=== PATIENT | female | born 1980 | race Caucasian/White ===

== ENCOUNTER 2018-09-23 16:22 | Emergency (ER) | payer BC, OTHER ==
[2018-09-23 16:32] VITALS: BP 128/88; PULSE 91; RESP 18; TEMP 98.1
[2018-09-23] MEDS ORDERED: METOCLOPRAMIDE 5 MG/ML 2 ML VIAL IVP STA (16:54)
[2018-09-23] MEDS ORDERED: ORPHENADRINE 30 MG/ML 2 ML VIAL IVP STA (16:54)
[2018-09-23] MEDS ORDERED: diphenhydrAMINE 50 MG/ML 1 ML VIAL IVP STA (16:54)
[2018-09-23] MEDS ORDERED: KETOROLAC 30 MG/ML 1 ML VIAL IVP STA (16:54)
[2018-09-23] MEDS ORDERED: SODIUM CHLORIDE 0.9% 1,000 ML IV ONE (16:55)
--- NOTE | 2018-09-23 17:46 | ED ---
Headache HPI - General Chief Complaint: Headache Stated Complaint: Headache with neuro deficits Time Seen by Provider: 09/23/18 16:34 Source: patient, RN notes reviewed Mode of arrival: ambulatory Limitations: no limitations - History of Present Illness Initial Comments: 38-year-old female presents emergency Department with chief complaint of headache. Patient has a long history migraine headaches usually alleviated with Motrin. Patient states occasionally she takes her mother's [place] but states that did not help. She also tried some CBD oil. Patient states that she did at one point have injections in her posterior skull region for migraine headaches. Patient denies any upper chest weakness, lower external weakness she does admit to some photophobia but denies any current nausea vomiting, neck pain, neck stiffness. She states she just feels sick. Denies any blurred vision, double vision. - Related Data Allergies Allergy/AdvReac Type Severity Reaction Status Date / Time No Known Allergies Allergy Verified 09/23/18 16:31 Review of Systems ROS Statement: Those systems with pertinent positive or pertinent negative responses have been documented in the HPI. ROS Other: All systems not noted in ROS Statement are negative. Past Medical History Past Medical History: Hypertension Additional Past Medical History / Comment(s): headaches Past Surgical History: No Surgical Hx Reported Past Psychological History: Bipolar, Depression Smoking Status: Never smoker Past Alcohol Use History: None Reported Past Drug Use History: None Reported General Exam Limitations: no limitations General appearance: alert, in no apparent distress Head exam: Present: atraumatic, normocephalic, normal inspection Eye exam: Present: normal appearance, PERRL, EOMI. Absent: scleral icterus, conjunctival injection, periorbital swelling ENT exam: Present: normal exam, normal oropharynx, mucous membranes moist, TM's normal bilaterally Neck exam: Present: normal inspection, full ROM. Absent: tenderness, meningismus, lymphadenopathy Respiratory exam: Present: normal lung sounds bilaterally. Absent: respiratory distress, wheezes, rales, rhonchi, stridor Cardiovascular Exam: Present: regular rate, normal rhythm, normal heart sounds. Absent: systolic murmur, diastolic murmur, rubs, gallop, clicks GI/Abdominal exam: Present: soft, normal bowel sounds. Absent: distended, tenderness, guarding, rebound, rigid Extremities exam: Present: normal inspection, full ROM, normal capillary refill. Absent: tenderness, pedal edema, joint swelling, calf tenderness Neurological exam: Present: alert, oriented X3, CN II-XII intact, normal gait, reflexes normal, other (Finger to nose intact bilaterally without overshooting). Absent: motor sensory deficit Skin exam: Present: warm, dry, intact, normal color. Absent: rash Course Vital Signs 09/23/18 16:27 Temperature 98.1 F Pulse Rate 91 Respiratory 18 Rate Blood Pressure 128/88 O2 Sat by Pulse 99 Oximetry - Reevaluation(s) Reevaluation #1: 09/23/18 18:02 Patient reevaluated states that her headache is greatly improved patient states she was comfortable with discharge at this time no neurological deficits. 09/23/18 18:02 Medical Decision Making - Medical Decision Making 38-year-old female presented for headache. Patient had typical migraine headache with no neurological deficits. Patient given Benadryl, Reglan, Toradol and IV fluids which improved her symptoms. Patient we discharged. Disposition Clinical Impression: Migraine Disposition: HOME SELF-CARE Condition: Stable Instructions (If sedation given, give patient instructions): Acute Headache (ED) Additional Instructions: Please return to the Emergency Department if symptoms worsen or any other concerns. Is patient prescribed a controlled substance at d/c from ED?: No Referrals: Jonnie Campbell MD [Primary Care Provider] - 1-2 days Time of Disposition: 18:03
== END 2018-09-23 18:27 | disposition home or self-care (01) ==
LOC: EC 16:22
DX: G43.909 Migraine, unspecified, not intractable, without status migrainosus (principal)
CPT/HCPCS: 99283; 96374; 96375 ×3; 96361; J1200; J2360; J2765; J1885

== ENCOUNTER → 2021-06-09 | Outpatient (CLI) | payer OTHER ==
[2021-06-09 14:19] LABS: Basophils # (A) 0.03 X 10*3/uL (0.00-0.10); Basophils % (A) 0.3 %; Eosinophils # (A) 0.16 X 10*3/uL (0.04-0.35); Eosinophils % (A) 1.8 %; HCT 43.8 % (37.2-46.3); HGB 14.4 g/dL (12.0-15.0); Immature Grans, Automated 0.3 %; Lymphocytes # (A) 2.41 X 10*3/uL (0.90-5.00); Lymphocytes % (A) 26.8 %; MCH 30.3 pg (27.0-32.0); MCHC 32.9 g/dL (32.0-37.0); Mean Platelet Volume 10.4 fL (9.5-12.2); Monocytes # (A) 0.77 X 10*3/uL (0.20-1.00); Monocytes % (A) 8.6 %; NRBC Per 100 WBC 0 /100 WBCS (0.0-0.0); Neutrophils # (A) 5.59 X 10*3/uL (1.80-7.70); Neutrophils % (A) 62.2 %; Platelet Count 358 X 10*3/uL (140-440); RBC 4.76 X 10*6/uL (4.10-5.20); RDW 13.4 % (11.5-14.5); WBC 8.99 X 10*3/uL (4.50-10.00)
== END | disposition home or self-care (01) ==
LOC: LABPAT 07:27
PROVIDERS: ATTEND Obstetrics & Gynecology
DX: Z01.818 Encounter for other preprocedural examination (principal); I10 Essential (primary) hypertension; T83.32XS Displacement of intrauterine contraceptive device, sequela; Y76.2 Prosthetic and other implants, materials and accessory obstetric and gynecological devices associated with adverse incidents
CPT/HCPCS: 85025; 93005

== ENCOUNTER 2021-06-12 07:49 | Day surgery (SDC) | payer OTHER ==
[2021-06-08 16:35] VITALS: BMI 30.2
[~2021-06-12 07:49] MED LIST: DEXAMETHASONE SOD PHOSPHATE 4 MG/ML 1 ML VIAL IV ONE; HYDROmorphone 0.5 MG/0.5 ML SYRINGE IVP PRN; LACTATED RINGERS 1,000 ML IV SCH; MIDAZOLAM 2 MG/2 ML VIAL IV PRN; ONDANSETRON 4 MG/2 ML VIAL IVP ONE; Pre Op ABX Message 1 EACH MISC MISCELLANE ONE; SCOPOLAMINE 1.5MG/72HR PATCH TRANSDERM ONE
[2021-06-12] MEDS ORDERED: PROPOFOL 10 MG/ML 20 ML VIAL IV ONE (09:30)
[2021-06-12] MEDS ORDERED: LIDOCAINE 1% INJ 10MG/ML (20 ML MDV) ONE (09:30)
[2021-06-12] MEDS ORDERED: MIDAZOLAM 2 MG/2 ML VIAL ONE (09:30)
[2021-06-12] MEDS ORDERED: fentaNYL (PF) 50 MCG/ML 2 ML AMP ONE (09:30)
[2021-06-12] MEDS ORDERED: SIMETHICONE 80 MG CHEWABLE PO PRN (09:59)
[2021-06-12] MEDS ORDERED: ONDANSETRON 4 MG/2 ML VIAL IVP PRN (09:59)
[2021-06-12] MEDS ORDERED: METOCLOPRAMIDE 5 MG/ML 2 ML VIAL IVP PRN (09:59)
[2021-06-12] MEDS ORDERED: KETOROLAC 15 MG/ML 1 ML VIAL IVP PRN (09:59)
[2021-06-12] MEDS ORDERED: diphenhydrAMINE 50 MG/ML 1 ML VIAL IVP PRN (09:59)
[2021-06-12] MEDS ORDERED: Acetaminophen-Codeine 300-30mg TAB PO PRN ×2 (09:59)
[2021-06-12] MEDS ORDERED: LACTATED RINGERS 1,000 ML IV SCH (10:00)
--- NOTE | 2021-06-12 10:08 | P.OP ---
Date of Procedure: 06/12/21 Preoperative Diagnosis: #1. Retained intrauterine device Postoperative Diagnosis: Same plus #2. Possible submucous fibroid Procedure(s) Performed: #1. Diagnostic hysteroscopy #2. Removal of Mirena intrauterine device #3. Insertion of Mirena intrauterine device Anesthesia: other (Gen. by face mask) Surgeon: Roberto Ramirez Estimated Blood Loss (ml): 5 IV fluids (ml): 400 Urine output (ml): 5 Pathology: none sent Condition: stable Disposition: PACU Operative Findings: Gravid pelvic examination demonstrated a 5-6 week midplane normal shaped uterus with normal adnexa bilaterally. Intraoperatively, the uterus sounded to urban roximately 9 cm. Using the hysteroscope, the IUD strings were seen to be doubled up along the body of the IUD. IUD was ultimately removed intact with perhaps only 3 cm of strings from the hub. There did appear to be a roughly 2 cm right low anterior submucous fibroid changing the architecture of the intrauterine cavity though this could not be palpated with a curette. The new Mirena was placed to the fundus of the uterus without difficulty and the strings trimmed to a length of approximately 4 cm from the cervix. Description of Procedure: The patient was prepped and draped in usual fashion after general anesthesia was administered by the anesthesiologist. Weighted speculum was placed in the bladder draining approximate 5 mL of clear silas urine. Anterior lip of the cervix was grasped with a single-tooth tenaculum and uterus sounded to 9 cm as noted above. Serial dilation was carried out to admit the scope. Initial attempts to remove the IUD with a Bosman clamp were unsuccessful. The scope was then placed and the IUD identified within the cavity. There was also noted what appeared to be a roughly 2 cm submucous fibroid in the right lower uterine s egment. No other pathology was noted. The IUD strings were identified both at the superior portion of the cavity and at the inferior portion of the cavity. After identifying the site of the IUD, the scope was set aside and the Bosman clamp replaced and the hospital grasped and was removed without difficulty. The strings were noted to be inverted entirely along the length of the IUD with the tips of the strings at the superior portion where the arms were noted. The strings were no longer than approximately 3 cm from the hub. A small curet was introduced into the cavity to attempt to palpate the fibroid which was not noted with gentle curettage. The 8 IUD was then placed to the fundus of the uterus without difficulty and the strings trimmed to approximate 4 cm from the external os of the cervix. All instrumentation was then removed. There was no ongoing bleeding either from the cervix or the tenaculum sites. Estimated blood loss for the case was less than 5 mL. There were no complications. All sponge, instrument, and needle counts were correct. The patient tolerated the procedure well and proceeded to the recovery room in stable condition.
[2021-06-12 10:09] VITALS: TEMP 97.4
[2021-06-12] MEDS ORDERED: LACTATED RINGERS 1,000 ML IV ONE (10:36)
[2021-06-12] MEDS ORDERED: NITROGLYCERIN-D5W PMX 50 MG in DEXTROSE/WATER 1 250ML.BAG IV ONE (10:36)
[2021-06-12 11:02] VITALS: RESP 20
[2021-06-12 11:37] VITALS: PULSE 88
[2021-06-12 11:40] VITALS: BP 124/80
== END 2021-06-12 11:53 | disposition home or self-care (01) ==
LOC: OR 07:49
PROVIDERS: ATTEND Obstetrics & Gynecology
DX: Z30.433 Encounter for removal and reinsertion of intrauterine contraceptive device (principal); I10 Essential (primary) hypertension; F90.9 Attention-deficit hyperactivity disorder, unspecified type; F31.9 Bipolar disorder, unspecified; K21.9 Gastro-esophageal reflux disease without esophagitis; R32 Unspecified urinary incontinence; Z79.899 Other long term (current) drug therapy; Z88.1 Allergy status to other antibiotic agents; Z87.442 Personal history of urinary calculi; Z80.3 Family history of malignant neoplasm of breast; Z82.49 Family history of ischemic heart disease and other diseases of the circulatory system
CPT/HCPCS: 81025; 58300; J2250; J1100; J2405; J2001; J3010; J2704

== ENCOUNTER 2022-07-06 19:00 | Emergency (ER) | payer OTHER ==
[2022-07-06 19:05] VITALS: TEMP 98
[2022-07-06] MEDS ORDERED: LORazepam 2 MG/ML INJ IM STA (19:05)
[2022-07-06 19:40] LABS: Basophils % (A) 0 %; Eosinophils # (A) 0.1 k/uL (0-0.7); Eosinophils % (A) 1 %; HCT 45.5 % (34.0-46.0); HGB 16.1 gm/dL (11.4-16.0); Hyperchromasia Slight; Lymphocytes # (A) 2.4 k/uL (1.0-4.8); Lymphocytes % (A) 20 %; MCH 31.1 pg (25.0-35.0); MCHC 35.5 g/dL (31.0-37.0); MCV 87.5 fL (80.0-100.0); Mean Platelet Volume 8.3; Monocytes # (A) 0.7 k/uL (0-1.0); Monocytes % (A) 6 %; Neutrophils # (A) 8.1 k/uL (1.3-7.7); Neutrophils % (A) 70 %; Platelet Count 352 k/uL (150-450); RDW 12.6 % (11.5-15.5); WBC 11.6 k/uL (3.8-10.6)
[2022-07-06 20:01] LABS: ALT 19 U/L (4-34); AST 18 U/L (14-36); African American GFR (CKD) >90 (>60 ml/min/1.73 sqM); Albumin 4.9 g/dL (3.5-5.0); Alkaline Phosphatase 109 U/L (38-126); Anion Gap 15 mmol/L; Blood Urea Nitrogen 13 mg/dL (7-17); Calcium 10.3 mg/dL (8.4-10.2); Carbon Dioxide 16 mmol/L (22-30); Chloride 105 mmol/L (98-107); Glucose 85 mg/dL (74-99); Lipase 109 U/L (23-300); Magnesium 1.7 mg/dL (1.6-2.3); Non-African American GFR(CKD) >90 (>60 ml/min/1.73 sqM); Potassium 3.5 mmol/L (3.5-5.1); Sodium 136 mmol/L (137-145); Total Bilirubin 0.6 mg/dL (0.2-1.3); Total Protein 7.8 g/dL (6.3-8.2)
[2022-07-06 20:06] LABS: Appearance,Urine Clear (Clear); Bacteria,Urine Rare /hpf; Bilirubin,Urine Negative (Negative); Blood,Urine Small (Negative); Color,Urine Yellow; Glucose,Urine (UA) Negative (Negative); Ketones,Urine Negative (Negative); Leukocyte Esterase,Urine Trace (Negative); Mucus,Urine Rare /hpf; Nitrite,Urine Negative (Negative); Protein,Urine Negative (Negative); RBC,Urine 1 /hpf (0-5); Specific Gravity,Urine 1.016 (1.001-1.035); Squamous Epithelial Cell,Urine <1 /hpf (0-4); Urobilinogen,Urine <2.0 mg/dL (<2.0); WBC,Urine 1 /hpf (0-5)
[2022-07-06 20:31] VITALS: RESP 18
--- NOTE | 2022-07-06 22:06 | ED ---
General Adult HPI - General Chief complaint: Anxiety Stated complaint: ANXIETY Time Seen by Provider: 07/06/22 19:06 Source: patient Mode of arrival: EMS Limitations: no limitations - History of Present Illness Initial comments: This is a 42-year-old female with a past medical history including anxiety and hypertension presented to the emergency department via EMS for an acute anxiety attack. The patient was hyperventilating in shortened sentences and was severely anxious on arrival. The patient could barely provide any history but did state that she was worse today around 3 PM. The patient had missed several of her doses of Abilify and stated that this is the worst ever been. The patient then got worked up because she saw that her daughter had seen her like this. The patient did complain of body aches but stated that it was because of her hyperventilating. The patient denied any other acute pain or complaints at this time. - Related Data Home Medications Medication Instructions Recorded Confirmed ARIPiprazole [Abilify] 2 mg PO DAILY@1500 06/08/21 06/08/21 Citalopram Hydrobromide [CeleXA] 40 mg PO DAILY@1500 06/08/21 06/08/21 Dextroamphetamine/Amphetamine 20 mg PO DAILY@1500,2000 06/08/21 06/08/21 [Adderall] Janet 500 mg PO DAILY@1500 06/08/21 06/08/21 Meclizine HCl [Bonine Chew] 25 mg PO DIRECTED PRN 06/08/21 06/08/21 Omeprazole 40 mg PO DAILY@1500 06/08/21 06/08/21 SUMAtriptan succinate [Imitrex] 50 mg PO DIRECTED PRN 06/08/21 06/08/21 lisinopriL [Zestril] 10 mg PO DAILY@1500 06/08/21 06/08/21 traMADol HCL [Ultram] 50 mg PO Q6HR PRN 06/08/21 06/08/21 Allergies Allergy/AdvReac Type Severity Reaction Status Date / Time clindamycin Allergy Rash/Hives Verified 07/06/22 19:05 minocycline Allergy Rash/Hives Verified 07/06/22 19:05 Review of Systems ROS Statement: Those systems with pertinent positive or pertinent negative responses have been documented in the HPI. ROS Other: All systems not noted in ROS Statement are negative. Past Medical History Past Medical History: GERD/Reflux, Hypertension Additional Past Medical History / Comment(s): headaches , KIDNEY STONES History of Any Multi-Drug Resistant Organisms: None Reported Past Surgical History: No Surgical Hx Reported Additional Past Surgical History / Comment(s): LITHOTRIPSY Past Anesthesia/Blood Transfusion Reactions: Motion Sickness Past Psychological History: ADD/ADHD, Anxiety, Bipolar, Depression Smoking Status: Never smoker - Past Family History Father Family Medical History: Deep Vein Thrombosis (DVT) General Exam Limitations: physical limitation (Patient severely anxious, unable to answer all questions secondary to anxiety) General appearance: alert, anxious (Severely anxious) Head exam: Present: atraumatic, normocephalic, normal inspection Eye exam: Present: normal appearance, PERRL Pupils: Present: normal accommodation ENT exam: Present: normal exam, normal oropharynx, mucous membranes moist Neck exam: Present: normal inspection, full ROM Respiratory exam: Present: other (Patient hyperventilating secondary to anxiety and panic attack) Cardiovascular Exam: Present: normal rhythm, tachycardia GI/Abdominal exam: Present: soft, normal bowel sounds Extremities exam: Present: normal inspection, full ROM Back exam: Present: normal inspection, full ROM Neurological exam: Present: alert, oriented X3, CN II-XII intact Psychiatric exam: Present: normal affect, normal mood Skin exam: Present: warm, dry Course Vital Signs 07/06/22 07/06/22 07/06/22 19:03 20:29 21:47 Temperature 98.0 F Pulse Rate 114 H 98 90 Respiratory 36 H 18 18 Rate Blood Pressure 139/114 107/64 108/72 O2 Sat by Pulse 99 100 97 Oximetry Medical Decision Making - Medical Decision Making Was pt. sent in by a medical professional or institution (, PA, CUTTING AND PRINTING MACHINE OPERATOR, urgent care, hospital, or [facility]...) When possible be specific @ -No Did you speak to anyone other than the patient for history (EMS, parent, family, police, friend...)? What history was obtained from this source @ -Yes, EMS who confirmed the patient's story of increasing anxiety and story that her anxiety got worse and as soon as the patient saw her daughter witnessing how anxious she was. Did you review nursing and triage notes (agree or disagree)? Why? @ -I reviewed and agree with nursing and triage notes Were old charts reviewed (outside hosp., previous admission, EMS record, old EKG, old radiological studies, urgent care reports/EKG's, [facility] records)? Report findings @ -No old charts were reviewed Differential Diagnosis (chest pain, altered mental status, abdominal pain women, abdominal pain men, vaginal bleeding, weakness, fever, dyspnea, syncope, headache, dizziness, GI bleed, back pain, seizure, CVA, palpatations, mental health)? @ -Acute anxiety, panic attack, electrolyte abnormality EKG interpreted by me (3pts min.). @ -As above X-rays interpreted by me (1pt min.). @ -None done CT interpreted by me (1pt min.). @ -None done U/S interpreted by me (1pt. min.). @ -None done What testing was considered but not performed or refused? (CT, X-rays, U/S, labs)? Why? @ -None What meds were considered but not given or refused? Why? @ -None Did you discuss the management of the patient with other professionals (professionals i.e. , PA, CUTTING AND PRINTING MACHINE OPERATOR, lab, RT, psych nurse, social services aide, [employer], te acher, air crew officer, rn case mgr)? Give summary @ -No Was smoking cessation discussed for >3mins.? @ -No Was critical care preformed (if so, how long)? @ -No Were there social determinants of health that impacted care today? How? (Homelessness, low income, unemployed, alcoholism, drug addiction, transportation, low edu. Level, literacy, decrease access to med. care, senior care, rehab)? @ -No Was there de-escalation of care discussed even if they declined (Discuss DNR or withdrawal of care, Hospice)? DNR status @ -No What co-morbidities impacted this encounter? (DM, HTN, Smoking, COPD, CAD, Cancer, CVA, ARF, Chemo, Hep., AIDS, mental health diagnosis, sleep apnea, morbid obesity)? @ -Anxiety, depression Was patient admitted / discharged? Hospital course, mention meds given and route, prescriptions, significant lab abnormalities, going to OR and other pertinent info. @ -The patient was seen and evaluated in the emergency department. Physical exam, the patient was resting in bed in severe anxiety and hyperventilating. The patient's vital signs reflected this. Due to the patient's significant panic attack, the patient was given 1 mg of Ativan IM on arrival. The patient was able to calm down sufficiently and on reevaluation in the emergency department stated that her symptoms were improved significantly and she felt back to baseline. The patient stated that she missed several of her doses of Abilify secondary to insurance issues. The patient did state that she just picked up her medications today and stated that she did have proper medications at home. The patient had not been able to follow-up with a therapist or counselor and therefore was given resources here in the emergency department. The patient was advised to follow-up with these resources and to report back to the emergency department if she is worsening symptoms. The patient was agreeable to this and all her questions were answered. The patient was discharg ed home in stable condition with her fianc. Undiagnosed new problem with uncertain prognosis? @ -No Drug Therapy requiring intensive monitoring for toxicity (Heparin, Nitro, Insulin, Cardizem)? @ -No Were any procedures done? @ -No Diagnosis/symptom? @ -Panic attack Acute, or Chronic, or Acute on Chronic? @ -Acute Uncomplicated (without systemic symptoms) or Complicated (systemic symptoms)? @ -Uncomplicated Side effects of treatment? @ -No Exacerbation, Progression, or Severe Exacerbation? @ -No Poses a threat to life or bodily function? How? (Chest pain, [place], [place], pneumonia, PE, COPD, DKA, ARF, appy, cholecystitis, CVA, Diverticulitis, Homicidal, Suicidal, threat to staff... and all critical care pts) @ -No - Lab Data Result diagrams: 07/06/22 19:22 07/06/22 19:22 Lab Results 07/06/22 07/06/22 07/06/22 Range/Units 19:22 19:22 19:42 WBC 11.6 H (3.8-10.6) k/uL RBC 5.20 (3.80-5.40) m/uL Hgb 16.1 H (11.4-16.0) gm/dL Hct 45.5 (34.0-46.0) % MCV 87.5 (80.0-100.0) fL MCH 31.1 (25.0-35.0) pg MCHC 35.5 (31.0-37.0) g/dL RDW 12.6 (11.5-15.5) % Plt Count 352 (150-450) k/uL MPV 8.3 Neutrophils % 70 % Lymphocytes % 20 % Monocytes % 6 % Eosinophils % 1 % Basophils % 0 % Neutrophils # 8.1 H (1.3-7.7) k/uL Lymphocytes # 2.4 (1.0-4.8) k/uL Monocytes # 0.7 (0-1.0) k/uL Eosinophils # 0.1 (0-0.7) k/uL Basophils # 0.0 (0-0.2) k/uL Hyperchromasia Slight Sodium 136 L (137-145) mmol/L Potassium 3.5 (3.5-5.1) mmol/L Chloride 105 (98-107) mmol/L Carbon Dioxide 16 L (22-30) mmol/L Anion Gap 15 mmol/L BUN 13 (7-17) mg/dL Creatinine 0.79 (0.52-1.04) mg/dL Est GFR (CKD-EPI)AfAm >90 (>60 ml/min/1.73 sqM) Est GFR (CKD-EPI)NonAf >90 (>60 ml/min/1.73 sqM) Glucose 85 (74-99) mg/dL Calcium 10.3 H (8.4-10.2) mg/dL Magnesium 1.7 (1.6-2.3) mg/dL Total Bilirubin 0.6 (0.2-1.3) mg/dL AST 18 (14-36) U/L ALT 19 (4-34) U/L Alkaline Phosphatase 109 (38-126) U/L Total Protein 7.8 (6.3-8.2) g/dL Albumin 4.9 (3.5-5.0) g/dL Lipase 109 (23-300) U/L Urine Color Yellow Urine Appearance Clear (Clear) Urine pH 7.0 (5.0-8.0) Ur Specific [place] 1.016 (1.001-1.035) Urine Protein Negative (Negative) Urine Glucose (UA) Negative (Negative) Urine Ketones Negative (Negative) Urine Blood Small H (Negative) Urine Nitrite Negative (Negative) Urine Bilirubin Negative (Negative) Urine Urobilinogen <2.0 (<2.0) mg/dL Ur Leukocyte Esterase Trace H (Negative) Urine RBC 1 (0-5) /hpf Urine WBC 1 (0-5) /hpf Ur Squamous Epith Cells <1 (0-4) /hpf Urine Bacteria Rare H (None) /hpf Urine Mucus Rare H (None) /hpf Urine HCG, Qual (Not Detectd) 07/06/22 Range/Units 19:42 WBC (3.8-10.6) k/uL RBC (3.80-5.40) m/uL Hgb (11.4-16.0) gm/dL Hct (34.0-46.0) % MCV (80.0-100.0) fL MCH (25.0-35.0) pg MCHC (31.0-37.0) g/dL RDW (11.5-15.5) % Plt Count (150-450) k/uL MPV Neutrophils % % Lymphocytes % % Monocytes % % Eosinophils % % Basophils % % Neutrophils # (1.3-7.7) k/uL Lymphocytes # (1.0-4.8) k/uL Monocytes # (0-1.0) k/uL Eosinophils # (0-0.7) k/uL Basophils # (0-0.2) k/uL Hyperchromasia Sodium (137-145) mmol/L Potassium (3.5-5.1) mmol/L Chloride (98-107) mmol/L Carbon Dioxide (22-30) mmol/L Anion Gap mmol/L BUN (7-17) mg/dL Creatinine (0.52-1.04) mg/dL Est GFR (CKD-EPI)AfAm (>60 ml/min/1.73 sqM) Est GFR (CKD-EPI)NonAf (>60 ml/min/1.73 sqM) Glucose (74-99) mg/dL Calcium (8.4-10.2) mg/dL Magnesium (1.6-2.3) mg/dL Total Bilirubin (0.2-1.3) mg/dL AST (14-36) U/L ALT (4-34) U/L Alkaline Phosphatase (38-126) U/L Total Protein (6.3-8.2) g/dL Albumin (3.5-5.0) g/dL Lipase (23-300) U/L Urine Color Urine Appearance (Clear) Urine pH (5.0-8.0) Ur Specific [place] (1.001-1.035) Urine Protein (Negative) Urine Glucose (UA) (Negative) Urine Ketones (Negative) Urine Blood (Negative) Urine Nitrite (Negative) Urine Bilirubin (Negative) Urine Urobilinogen (<2.0) mg/dL Ur Leukocyte Esterase (Negative) Urine RBC (0-5) /hpf Urine WBC (0-5) /hpf Ur Squamous Epith Cells (0-4) /hpf Urine Bacteria (None) /hpf Urine Mucus (None) /hpf Urine HCG, Qual Not Detected (Not Detectd) Disposition Clinical Impression: Panic attack Disposition: HOME SELF-CARE Condition: Stable Instructions (If sedation given, give patient instructions): Panic Attack (ED) Is patient prescribed a controlled substance at d/c from ED?: No Referrals: Jonnie Campbell MD [Primary Care Provider] - 1-2 days Time of Disposition: 22:00
[2022-07-06 22:31] VITALS: BP 107/79; PULSE 91
== END 2022-07-06 22:37 | disposition home or self-care (01) ==
LOC: EC 19:00
DX: F41.0 Panic disorder [episodic paroxysmal anxiety] (principal); I10 Essential (primary) hypertension; F31.9 Bipolar disorder, unspecified; K21.9 Gastro-esophageal reflux disease without esophagitis; Z79.899 Other long term (current) drug therapy; Z88.5 Allergy status to narcotic agent; Z88.8 Allergy status to other drugs, medicaments and biological substances
CPT/HCPCS: 36415; 80053; 83690; 83735; 85025; 81001; 81025; 99284; 96372; J2060